=== PATIENT | female | born 1960 | race Two or more races ===

== ENCOUNTER → 2016-10-22 | Day surgery (SDC) | payer OTHER ==
[~2016-10-22] VITALS: Ht 160 cm; Wt 83.9 kg
[2016-10-22] VITALS (17 sets, daily range): BP systolic 102–148; BP diastolic 55–80
[~2016-10-22] MED LIST: LISINOPRIL2.5 MG ORAL; METFORMIN HCL1000 M1 ORAL; Midazolam 2mg/2ml Inj IVP SCH; Morphine Sulfate 2mg/ml Inj IVP ONE; Morphine Sulfate 2mg/ml Inj ONE; Norco 5mg/325mg tab ORAL ONE; OMEPRAZOLE20 M2 ORAL; fentaNYL 100 mcg/2 mL IV ONE
[2016-10-22 12:34] LABS: BASOPHILS % (AUTO) 1.3 % (0.0-2.0); EOSINOPHILS % (AUTO) 2.4 % (0.0-3.0); LYMPHOCYTES % (AUTO) 39.9 % (20.0-45.0); MEAN CORPUSCULAR HEMOGLOBIN 29.5 PG (27.0-31.0); MEAN CORPUSCULAR HGB CONC 32.2 G/DL (32.0-36.0); MEAN CORPUSCULAR VOLUME 92 FL (80-99); MONOCYTES % (AUTO) 8.2 % (1.0-10.0); NEUTROPHILS % (AUTO) 48.3 % (45.0-75.0); PLATELET COUNT 114 K/UL (150-450); RED BLOOD COUNT 5.22 M/UL (4.20-5.40); RED CELL DISTRIBUTION WIDTH 12.3 % (11.6-14.8); WHITE BLOOD COUNT 5.9 K/UL (4.8-10.8)
[2016-10-22 12:37] LABS: INR 1.1 (0.9-1.1); PROTHROMBIN TIME 11.3 SEC (9.30-11.50)
[2016-10-22 12:41] LABS: ANION GAP 16 (5-15); CALCIUM 9.7 mg/dL (8.6-10.2); CARBON DIOXIDE 24 mEQ/L (20-30); CHLORIDE 101 mEQ/L (98-107); CREATININE 0.6 mg/dL (0.5-0.9); GLOMERULAR FILTRATION RATE > 60 mL/min (>60); HEMOLYSIS 5; SODIUM 141 mEQ/L (135-145)
--- NOTE | 2016-10-22 13:44 | Pre-Procedure Note/Attestation ---
Pre-Procedure Note/Attestation Complete Prior to Procedure Procedure Narrative: US guided liver bx Indications for Procedure Pre-Operative Diagnosis: hepatic steatosis Attestation I attest that I discussed the nature of the procedure; its benefits; risks and complications; and alternatives (and the risks and benefits of such alternatives ), prior to the procedure, with the patient (or the patient's legal marketing sales representative). I attest that, if there was a reasonable possibility of needing a blood transfusion, the patient (or the patient's legal marketing sales representative) was given the [facility] standardized written summary, pursuant to the [place] Blood Safety Act ([place] Health and Safety Code # 1645, as amended). I attest that I re-evaluated the patient just prior to the surgery and that there has been no change in the patient's H&P, except as documented below: PAOLO PRADO M.D. Oct 22, 2016 13:44
--- NOTE | 2016-10-22 13:45 | Moderate Sedation - Procedural ---
Moderate Sedation HPI Home Medication Reported Medications Omeprazole (OMEPRAZOLE) 20 Mg Capsule.dr, 20 MG ORAL DAILY, CAP 10/22/16 Metformin Hcl* (METFORMIN HCL*) 1,000 Mg Tablet, 1000 MG ORAL DAILY, TAB 10/22/16 Lisinopril* (LISINOPRIL*) 2.5 Mg Tablet, 5 MG ORAL DAILY, TAB 0 Refills 10/22/16 Patient History Allergies: Coded Allergies: No Known Allergies (Unverified , 10/22/16) PAST MEDICAL HISTORY: Past Surgeries: Social History: Pre-Procedural Mod Sedation Date: Oct 22, 2016 Pre-Assessment Time: 13:30 Pre-Sedation Assessment: Elective Airway Assessment (Malampati): II Evaluation Hx of untoward rxns to mod sed: No Procedures/Plans: Radiology Plan for Moderate Sedation: Midazolam, Fentanyl ASA Score: I Informed Consent The nature of the procedure/sedation; its benefits; risks and complications; and alternatives (and the risks and benefits of such alternatives) were discussed with the patient (or their legal field support representative), prior to the procedure. All questions were answered to the patient's (or their legal field support representative's) satisfaction and the patient (or their legal field support representative) gave informed consent to the procedure. I attest that I re-evaluated the patient just prior to the surgery and that there has been no change in the patient's H&P, except as documented below: Post Procedure Assessment Post Procedure TIme: 14:00 Communication: No Apparent Limitation Mental Status: Awake Respiration: Unlabored Skin Condition: WNL Adomen: WNL Nausea: NO Vomiting: NO PAOLO PRADO M.D. Oct 22, 2016 13:45
--- NOTE | 2016-10-22 16:23 | Diagnostic Imaging Report ---
Indication: Steatohepatitis, biopsy for research protocol Technique: Informed consent obtained prior to commencement of procedure. Procedure timeout performed. Patient given intraprocedural moderate sedation sedation and analgesia. Ultrasound used to localize the optimal puncture site. Prepping and draping. Local anesthesia with 1% lidocaine. Under real-time ultrasound guidance, puncture right hepatic lobe using 16-gauge automated biopsy gun. Two 16 -gauge cores were obtained, placed in formalin, sent to the research laboratory. The patient tolerated the procedure well, without immediate complication.. Comparison: Findings: Interprocedural images document needle placement within the right hepatic lobe Impression: Successful right lobe liver biopsy for evaluation of parenchymal disease, as described
--- NOTE | 2016-10-22 16:32 | Diagnostic Imaging Report ---
Indication: Steatohepatitis, abnormal labs, research protocol patient Technique: Oropeza-scale and duplex images of the upper abdomen were obtained Comparison: None Findings: . Gallbladder is unremarkable, without stones, wall thickening, nor pericholecystic fluid. Sonographic Mcadams's sign is negative. Common bile duct measures 5 mm in diameter. No intrahepatic biliary ductal dilatation. Liver demonstrates normal echogenicity, no focal abnormality. No surface micro-nodularity. Portal vein and hepatic veins are patent.. Pancreas is unremarkable. Spleen is unremarkable. Left kidney measures 12.8 cm in length. Right kidney measures 12.4 cm length. Both kidneys demonstrate normal echogenicity. There is no hydronephrosis. There are small left renal cysts. No free intraperitoneal fluid. Non-aneurysmal abdominal aorta. Impression: This is unremarkable exam. Negative for gallstones, dilated ducts, or significant hepatic abnormality Incidental finding left lower pole renal cysts
== END | disposition home or self-care (01) ==
LOC: ULS 09:37 → SUR 09:37
DX: K75.81 Nonalcoholic steatohepatitis (NASH) (principal); B19.20 Unspecified viral hepatitis C without hepatic coma; E11.9 Type 2 diabetes mellitus without complications; Z79.4 Long term (current) use of insulin; Z79.84 Long term (current) use of oral hypoglycemic drugs
CPT/HCPCS: 36415; 47000; 76700; 76942; 80048; 82962; 85025; 85610; 85730; J2250; J2270; J3010

== ENCOUNTER 2017-04-30 10:19 | Outpatient (CLI) | payer OTHER ==
[~2017-04-30 10:19] MED LIST changes: -Midazolam 2mg/2ml Inj IVP SCH; -Morphine Sulfate 2mg/ml Inj IVP ONE; -Morphine Sulfate 2mg/ml Inj ONE; -Norco 5mg/325mg tab ORAL ONE; -fentaNYL 100 mcg/2 mL IV ONE
--- NOTE | 2017-04-30 12:32 | Diagnostic Imaging Report ---
Indication: ABD PAIN abdominal pain, hepatitis C Technique: Oropeza-scale and duplex images of the upper abdomen were obtained Comparison: 10/22/2016 Findings: Gallbladder is unremarkable, without stones, wall thickening, nor pericholecystic fluid. Sonographic Mcadams's sign is negative. Common bile duct measures 4 mm in diameter. No intrahepatic biliary ductal dilatation. Liver demonstrates coarsened echogenicity. No surface micro-nodularity. No focal abnormality Portal vein and hepatic veins are patent. Pancreas is unremarkable. Spleen is unremarkable. Left kidney measures 12.2 cm in length. Right kidney measures 13.7 cm length. Both kidneys demonstrate normal echogenicity. There is no hydronephrosis. No focal abnormality . Previously demonstrated left lower pole renal cyst is not identified currently. Non-aneurysmal abdominal aorta . Impression: Coarsened hepatic echogenicity, possibly related to stated clinical history of hepatitis C Negative for gallstones, dilated ducts, or other significant abnormality
== END 2017-04-30 12:19 | disposition home or self-care (01) ==
LOC: ULS 10:19
DX: R10.9 Unspecified abdominal pain (principal); K76.0 Fatty (change of) liver, not elsewhere classified; Z86.19 Personal history of other infectious and parasitic diseases
CPT/HCPCS: 76700

== ENCOUNTER 2017-10-17 12:34 | Outpatient (CLI) | payer OTHER ==
--- NOTE | 2017-10-17 15:37 | Diagnostic Imaging Report ---
Indication: Abdominal pain Technique: Multiplanar grayscale and color Doppler imaging of the abdomen Comparison: 04/30/2017, 10/22/2016 Findings: Liver is normal in size; the right lobe measures approximately 13 cm in length. Hepatic echotexture is coarsened. No focal hepatic mass lesion is appreciated sonographically. Hepatic veins are patent. Main portal vein appears patent. There is additional micronodularity of the liver contour. Gallbladder is unremarkable in appearance. There is no cholelithiasis or appreciable gallbladder sludge. No gallbladder wall thickening or pericholecystic fluid. Sonographic Mcadams sign reported as negative. There is no intrahepatic or extra hepatic biliary ductal dilatation. The common bile duct measures approximately 6 mm. Imaged portions of the pancreatic head are grossly unremarkable. The body and tail are not well seen. The kidneys are symmetric in size. Both kidneys demonstrate normal parenchymal echogenicity and cortical thickness. There is no evidence of hydronephrosis or sonographically appreciable renal stone bilaterally. There is a subcentimeter anechoic structure in the left kidney possibly representing a simple renal cyst. Spleen is not enlarged. No focal splenic lesion is identified. Imaged portions of the abdominal aorta and IVC are normal in caliber. There is no ascites. IMPRESSION: Coarsened hepatic echogenicity with possible micronodularity of the hepatic contour. No focal hepatic mass lesion appreciated sonographically. No evidence of acute intra-abdominal pathology. No appreciable cholelithiasis or evidence to suggest cholecystitis.
== END 2017-10-17 14:34 | disposition home or self-care (01) ==
LOC: ULS 12:34
DX: R10.9 Unspecified abdominal pain (principal)
CPT/HCPCS: 76700

== ENCOUNTER 2018-09-24 09:51 | Outpatient (CLI) | payer OTHER ==
--- NOTE | 2018-09-24 12:43 | Diagnostic Imaging Report ---
Indication: Abdominal pain, history of hepatitis C Technique: Oropeza-scale and duplex images of the upper abdomen were obtained. Doppler interrogation of the hepatic and pancreatic vessels Comparison: 10/17/2017 Findings: Gallbladder is unremarkable, without stones, wall thickening, nor pericholecystic fluid. Sonographic Mcadams's sign is negative. Common bile duct measures for mm in diameter. No intrahepatic biliary ductal dilatation. Liver demonstrates slightly coarsened echogenicity. No focal abnormality. Again noted is hepatic surface micronodularity. Portal vein and hepatic veins are patent. Pancreas demonstrates nonspecific heterogeneous echogenicity. Spleen is unremarkable. Left kidney measures 12.5 cm in length. Right kidney measures 12.8 cm length. Both kidneys demonstrate normal echogenicity. There is no hydronephrosis. 9 mm left renal cyst again demonstrated . Non-aneurysmal abdominal aorta . Impression: Coarsened hepatic echogenicity and surface nodularity, also previously described, consistent with hepatic cirrhosis. Somewhat heterogeneous pancreatic echogenicity, nonspecific Negative for gallstones or dilated ducts Incidental finding left renal cyst
== END 2018-09-24 11:51 | disposition home or self-care (01) ==
LOC: ULS 09:51
DX: R10.9 Unspecified abdominal pain (principal); Z86.19 Personal history of other infectious and parasitic diseases
CPT/HCPCS: 76700